=== PATIENT | female | born 2000 | race Caucasian/White ===

== ENCOUNTER 2022-04-08 17:36 | Emergency (ER) | payer OTHER ==
[~2022-04-08] VITALS: Ht 160 cm; Wt 93.0 kg
--- NOTE | 2022-04-08 18:00 | NUR ---
ARRIVAL PT ARRIVED AMBULATORY TO ED 7 WITH C/O HER LEFT PUPIL BEING MORE DILATED THAN THE OTHER AFTER USING A REDNESS RELIEF EYE DROP. VITALS TAKEN AND DR NOTIFIED.
[2022-04-08 18:06] VITALS: BP 130/77
--- NOTE | 2022-04-08 18:28 | ER.PDOC ---
General Chief Complaint: Eye Problems Stated Complaint: LEFT EYE BLUR VISION/ L L PUPIL IS LARGER THAN R Time seen by MD: 18:22 Source: patient Exam Limitations: no limitations History of Present Illness Initial Comments Patient used naphazoline eyedrops for some itching in the left eye and noticed that the pupil was bigger on the left side, MILD blurring of vision Timing/Duration: abrupt Associated Symptoms: blurred vision Location: left eye Severity: mild Apparent Inury: No Allergies: Coded Allergies: latex (Verified Allergy, Unknown, 04/08/22) Past Medical History Medical History: no pertinent history Surgical History: Social History Alcohol Use: none Drug Use: none Reviewed Nursing Reviewed: Vital Signs, Abn. Noted Constitutional: no symptoms reported Eyes: see HPI, blurred vision, other Ears: no symptoms reported Nose: no symptoms reported Throat: no symptoms reported Respiratory: no symptoms reported Gastrointestinal: no symptoms reported Skin: no symptoms reported Neurological: no symptoms reported Results/Orders Results/Orders Vital Signs Date Time Temp Pulse Resp B/P (MAP) Pulse Ox O2 Delivery O2 Flow Rate FiO2 04/08/22 18:06 98.4 87 18 95 04/08/22 18:06 98.4 87 18 04/08/22 18:06 98.4 87 18 130/77 (94) 95 Room Air* 0 21 Progress Progress VISUAL ACUITY 20/25 BOTH EYES ER DEPART Departure Time of Disposition: 18:33 Disposition: 01 HOME / SELF CARE / HOMELESS Impression: Primary Impression: Medication adverse effect Condition: Stable Referrals: PCP,UNKNOWN (PCP) PRIMARY CARE PROVIDER Duration or Time Spent with Pa: NATHEN DIAMOND MD Apr 08, 2022 18:28
[2022-04-08 18:35] VITALS: BP 105/65
== END 2022-04-08 18:40 | disposition home or self-care (01) ==
LOC: ER 17:36
DX: H53.8 Other visual disturbances (principal); T78.8XXA Other adverse effects, not elsewhere classified, initial encounter; Z98.890 Other specified postprocedural states; Z91.040 Latex allergy status
CPT/HCPCS: 99282